=== PATIENT | female | born 1965 | race African-American/Black ===

== ENCOUNTER 2021-12-19 08:11 | Emergency (ER) | payer OTHER ==
[2021-12-19 12:24] LABS: SARS-CoV-2 PCR by NAA DETECTED (NotDetected)
== END 2021-12-19 09:24 | disposition home or self-care (01) ==
LOC: ERS 08:11
DX: U07.1 COVID-19 (principal); F17.210 Nicotine dependence, cigarettes, uncomplicated
CPT/HCPCS: 99283; U0003; U0005

== ENCOUNTER 2021-12-27 10:21 | Outpatient (CLI) | payer BC | END 2021-12-27 10:22 | disposition home or self-care (01) | LOC: BICRAD 10:21 | PROVIDERS: ATTEND Internal Medicine | DX: M17.12 Unilateral primary osteoarthritis, left knee (principal) ==

== ENCOUNTER 2022-01-10 09:45 | Outpatient (CLI) | payer BC | END 2022-01-10 09:46 | disposition home or self-care (01) | LOC: BICCT 09:45 | PROVIDERS: ATTEND Internal Medicine | DX: Z12.2 Encounter for screening for malignant neoplasm of respiratory organs (principal); F17.210 Nicotine dependence, cigarettes, uncomplicated; R91.8 Other nonspecific abnormal finding of lung field | CPT/HCPCS: 71271 ==

== ENCOUNTER 2022-01-10 10:00 | Outpatient (CLI) | payer BC | END 2022-01-10 10:01 | disposition home or self-care (01) | LOC: BICMAMMO 10:00 | PROVIDERS: ATTEND Internal Medicine | DX: Z12.31 Encounter for screening mammogram for malignant neoplasm of breast (principal) | CPT/HCPCS: 77063; 77067 ==

== ENCOUNTER 2022-01-16 14:31 | Outpatient (CLI) | payer BC ==
[~2022-01-16 14:31] MED LIST: Iopamidol-370 76% 500 ML 1 ML ONE
== END 2022-01-16 14:32 | disposition home or self-care (01) ==
LOC: BICCT 14:31
PROVIDERS: ATTEND Internal Medicine
DX: R19.00 Intra-abdominal and pelvic swelling, mass and lump, unspecified site (principal); K43.9 Ventral hernia without obstruction or gangrene; Z90.710 Acquired absence of both cervix and uterus
CPT/HCPCS: 74177; Q9967

== ENCOUNTER 2022-04-22 13:10 | Emergency (ER) | payer BC ==
[2022-04-22] MEDS ORDERED: Ketorolac Tromethamine 30 MG/ML VIAL ONE (15:22)
== END 2022-04-22 15:45 | disposition home or self-care (01) ==
LOC: ERS 13:10
DX: M25.511 Pain in right shoulder (principal); F17.210 Nicotine dependence, cigarettes, uncomplicated; X50.0XXA Overexertion from strenuous movement or load, initial encounter
CPT/HCPCS: 96372; J1885

== ENCOUNTER 2022-04-24 10:04 | Emergency (ER) | payer BC | END 2022-04-24 11:00 | disposition home or self-care (01) | LOC: ERS 10:04 | DX: M25.511 Pain in right shoulder (principal); F17.210 Nicotine dependence, cigarettes, uncomplicated | CPT/HCPCS: 99282 ==

== ENCOUNTER 2023-12-03 08:54 | Inpatient (IN) | payer BC ==
[2023-12-03] MEDS ORDERED: diphenhydrAMINE 50 MG/ML VIAL ONE (09:36)
[2023-12-03] MEDS ORDERED: Acetaminophen 500 MG TAB ONE (09:36)
[2023-12-03] MEDS ORDERED: Metoclopramide HCl 10 MG (2 mL) VIAL ONE (09:36)
[2023-12-03 11:34] LABS: SARS-CoV-2 NAA Rapid Test Not Detected (NotDetected)
[2023-12-03 13:53] LABS: #Monocytes 0.4 thou/uL (0.11-0.59); #Neutrophils 7.6 thou/uL (1.40-6.50); %Basophils 0.3 % (0.0-1.0); %Eosinophils 0.4 % (0.0-10.0); %Lymphocytes 13.2 % (21.0-51.0); %Monocytes 4.6 % (0.0-10.0); %Neutrophils 81.2 % (42.0-75.0); Hemoglobin 13.3 g/dL (12.0-16.0); Mean Corpuscular HGB CONC 30.9 g/dL (32.0-36.0); Mean Corpuscular Hemoglobin 29.5 pg (27.0-31.0); Mean Corpuscular Volume 95.3 fl (78.0-98.0); Mean Platelet Volume 9.4 fL (7.4-10.4); Platelet Count 292 10x3/uL (130-400); RBC Distribution Width 14.7 % (11.5-14.5); Red Blood Cell (RBC) Count 4.51 mill/uL (4.20-5.40); White Blood Cell (WBC) Count 9.3 10x3/uL (4.8-10.8)
[2023-12-03 14:08] LABS: ALT (SGPT) 27 U/L (8-55); AST (SGOT) 18 U/L (5-34); Albumin 4.1 g/dL (3.5-5.0); Alkaline Phosphatase 103 U/L (40-110); Anion Gap 14 mmol/L (10-20); BUN (Urea Nitrogen) 10 mg/dL (9.8-20.1); Bilirubin, Total 0.2 mg/dL (0.2-1.2); Calc. Creatinine Clearance 0 mL/min (70-130); Calcium 9.1 mg/dL (7.8-10.44); Carbon Dioxide 26 mmol/L (22-29); Chloride 103 mmol/L (98-107); Estimated GFR 100; Globulin 3.6 g/dL (2.4-3.5); Glucose 83 mg/dL (70-105); Potassium 3.9 mmol/L (3.5-5.1); Protein, Total 7.7 g/dL (6.0-8.3); Sodium 139 mmol/L (136-145)
[2023-12-03 14:12] LABS: Troponin I 0.021 ng/mL (< 0.028)
[2023-12-03] MEDS ORDERED: Sodium Chloride 0.9% 100 ML ONE (15:59)
[2023-12-03] MEDS ORDERED: cefTRIAXone (ROCEPHIN) 2 GM VIAL ONE (15:59)
[2023-12-03] MEDS ORDERED: Furosemide 40 MG (4 mL) VIAL ONE (15:59)
[2023-12-03] MEDS ORDERED: Ketorolac Tromethamine 30 MG (1 mL) VIAL ONE (15:59)
[2023-12-03] MEDS ORDERED: Azithromycin 500 MG VIAL ONE (15:59)
[2023-12-03 19:34] VITALS: BMI 54.8
[2023-12-03] MEDS ORDERED: Losartan 25 MG TAB PO SCH (20:15)
[2023-12-03] MEDS: Acetaminophen 325 MG TAB PO PRN (20:36)
[2023-12-03] MEDS ORDERED: Labetalol HCl 100 MG/20 ML VIAL SLOW IVP SCH (22:45)
[2023-12-03] MEDS: Ketorolac Tromethamine 30 MG (1 mL) VIAL IVP PRN (22:46)
[2023-12-04 04:42] LABS: #Eosinphils 0.1 thou/uL (0.0-0.7); #Monocytes 0.5 thou/uL (0.11-0.59); #Neutrophils 6.3 thou/uL (1.40-6.50); %Basophils 0.5 % (0.0-1.0); %Eosinophils 0.7 % (0.0-10.0); %Lymphocytes 17.4 % (21.0-51.0); %Monocytes 5.7 % (0.0-10.0); %Neutrophils 75.5 % (42.0-75.0); Hematocrit 42.6 % (36.0-47.0); Hemoglobin 13.2 g/dL (12.0-16.0); Mean Corpuscular Hemoglobin 29.2 pg (27.0-31.0); Mean Corpuscular Volume 94.2 fl (78.0-98.0); Mean Platelet Volume 11.1 fL (7.4-10.4); Platelet Count 228 10x3/uL (130-400); RBC Distribution Width 14.7 % (11.5-14.5); Red Blood Cell (RBC) Count 4.52 mill/uL (4.20-5.40); White Blood Cell (WBC) Count 8.4 10x3/uL (4.8-10.8)
[2023-12-04 05:06] LABS: Anion Gap 13 mmol/L (10-20); BUN (Urea Nitrogen) 9 mg/dL (9.8-20.1); Calc. Creatinine Clearance 230 mL/min (70-130); Calcium 9.1 mg/dL (7.8-10.44); Carbon Dioxide 28 mmol/L (22-29); Chloride 100 mmol/L (98-107); Estimated GFR 104; Glucose 94 mg/dL (70-105); Potassium 3.4 mmol/L (3.5-5.1); Sodium 138 mmol/L (136-145)
[2023-12-04] MEDS: Ketorolac Tromethamine 30 MG (1 mL) VIAL IVP PRN (06:29)
[2023-12-04] MEDS ORDERED: Losartan 25 MG TAB PO SCH (09:00)
[2023-12-04] MEDS ORDERED: Enoxaparin 40 MG (0.4 mL) SYRINGE SC SCH (09:00)
[2023-12-04] MEDS: Losartan 25 MG TAB PO SCH (09:20)
[2023-12-04] MEDS: Acetaminophen 325 MG TAB PO PRN ×2 (13:49→21:03)
[2023-12-04] MEDS: hydrALAZINE 10 MG TAB PO PRN (13:50)
[2023-12-04] MEDS: Azithromycin 500 MG in Sodium Chloride 0.9% 250 ML 250 ML IVPB SCH (17:53)
[2023-12-04] MEDS: cefTRIAXone\\ROCEPHIN 1 GM in Sodium Chloride 0.9% 100 ML IVPB SCH (17:53)
[2023-12-04] MEDS: Metoprolol Tartrate 25 MG TAB PO SCH (21:04)
[2023-12-04] MEDS: Enoxaparin 30 MG (0.3 mL) SYRINGE SC SCH (21:05)
[2023-12-05] MEDS: hydrALAZINE 10 MG TAB PO PRN ×2 (00:05→16:34)
[2023-12-05] MEDS: Metoprolol Tartrate 25 MG TAB PO SCH (09:17)
[2023-12-05] MEDS: Enoxaparin 30 MG (0.3 mL) SYRINGE SC SCH (09:17)
[2023-12-05] MEDS: Losartan 25 MG TAB PO SCH (09:17)
[2023-12-05 16:05] VITALS: BP 182/83; TEMP 98.2
[2023-12-05] MEDS: cefTRIAXone\\ROCEPHIN 1 GM in Sodium Chloride 0.9% 100 ML IVPB SCH (16:34)
[2023-12-05] MEDS: Ketorolac Tromethamine 30 MG (1 mL) VIAL IVP PRN (16:36)
[2023-12-05] MEDS ORDERED: Carvedilol 25 MG TAB PO SCH (17:00)
[2023-12-05] MEDS: Azithromycin 500 MG in Sodium Chloride 0.9% 250 ML 250 ML IVPB SCH (17:27)
== END 2023-12-05 19:16 | disposition home or self-care (01) | DRG 304 ==
LOC: ERS 08:54 → ERHOLD 16:04 → 2NO 19:07 → OBSVTOIN 12-05 15:28
PROVIDERS: ADMIT Internal Medicine; ATTEND Hospitalist
DX: I16.1 Hypertensive emergency (principal); J18.9 Pneumonia, unspecified organism; Z68.43 Body mass index [BMI] 50.0-59.9, adult; I50.30 Unspecified diastolic (congestive) heart failure; Z79.899 Other long term (current) drug therapy; I11.0 Hypertensive heart disease with heart failure; Z11.52 Encounter for screening for COVID-19; Z90.710 Acquired absence of both cervix and uterus; Z90.49 Acquired absence of other specified parts of digestive tract; F17.210 Nicotine dependence, cigarettes, uncomplicated; E66.01 Morbid (severe) obesity due to excess calories
CPT/HCPCS: 36415; 70450; 71045; 80048; 80053; 83880; 84484; 85025; 85379; 93005; 93306; J0456; J0696; J1200; J1650; J1885; J1940; J2765; J3490; J7050

== ENCOUNTER 2023-12-18 15:14 | Outpatient (CLI) | payer BC | END 2023-12-18 15:15 | disposition home or self-care (01) | LOC: BICRAD 15:14 | PROVIDERS: ATTEND Internal Medicine | DX: M25.561 Pain in right knee (principal); M25.562 Pain in left knee; M54.50 Low back pain, unspecified; I51.7 Cardiomegaly; M47.816 Spondylosis without myelopathy or radiculopathy, lumbar region; M17.0 Bilateral primary osteoarthritis of knee; Z87.01 Personal history of pneumonia (recurrent) | CPT/HCPCS: 71046; 72100 ==

== ENCOUNTER 2023-12-19 10:39 | Outpatient (CLI) | payer BC ==
[2023-12-19] MEDS ORDERED: Iopamidol 370 76% 100 ML VIAL ONE (12:33)
== END 2023-12-19 10:40 | disposition home or self-care (01) ==
LOC: ULT 10:39
PROVIDERS: ATTEND Internal Medicine
DX: R79.89 Other specified abnormal findings of blood chemistry (principal); M71.22 Synovial cyst of popliteal space [Baker], left knee; R91.8 Other nonspecific abnormal finding of lung field
CPT/HCPCS: 71275; 93970; Q9967

== ENCOUNTER 2024-08-13 10:23 | Inpatient (IN) | payer BC, SELFPAY ==
[2024-08-13 11:06] LABS: #Basophils Less than 0.03 10x3/uL (0.0-0.2); %Basophils 0.3 % (0.0-1.0); %Eosinophils 1.2 % (0.0-10.0); %Lymphocytes 14.6 % (21.0-51.0); %Monocytes 6.4 % (0.0-10.0); %Neutrophils 77.1 % (42.0-75.0); Hematocrit 43.3 % (36.0-47.0); Hemoglobin 13.6 g/dL (12.0-16.0); Mean Corpuscular HGB CONC 31.4 g/dL (32.0-36.0); Mean Corpuscular Hemoglobin 29.2 pg (27.0-31.0); Mean Corpuscular Volume 92.9 fL (78.0-98.0); Mean Platelet Volume 9.2 fL (7.4-10.4); Platelet Count 333 10x3/uL (130-400); RBC Distribution Width 13.3 % (11.5-14.5); Red Blood Cell (RBC) Count 4.66 mill/uL (4.20-5.40)
[2024-08-13] MEDS ORDERED: Iopamidol-370 76% 500 ML MDV (1 ML CHARGE) ONE (11:09)
[2024-08-13 11:21] LABS: PTT 33.3 sec (22.9-36.1); Prothrombin Time 13.6 sec (12.0-14.7)
[2024-08-13 11:23] LABS: D-Dimer Test 0.61 mcg/mL (0.27-0.43)
[2024-08-13 11:25] LABS: SARS-CoV-2 E Target Negative; SARS-CoV-2 N2 Target Negative; SARS-CoV-2 NAA Rapid Test Not Detected (NotDetected); SARS-CoV-2 RdRP gene Negative
[2024-08-13 11:35] LABS: Troponin I Less than 0.010 ng/mL (< 0.028)
[2024-08-13 11:44] LABS: Actual Bicarbonate (HCO3v) 27.4 mEq/L (22-28); Base Excess -0.3 mEq/L (-2.0 to +3.0); Calcium, Ionized (venous) 1.13 mmol/L (1.16-1.32); Chloride (VBG) 101 mmol/L (98-106); Hematocrit-VBG 44 % (36.0-47.0); Hemoglobin (Hb) 14.9 g/dL (11.7-16.0); Potassium (VBG) 5.22 mmol/L (3.70-5.30); Sodium 139 mmol/L (133-146)
[2024-08-13 12:20] LABS: Bacteria/HPF None Seen HPF (None Seen); Bilirubin Negative (Negative); Blood, Urine Negative (Negative); CAUTI Indications for Culture Alt mental st,lethar; Clarity Clear (Clear); Glucose, Urine (Dipstick) Normal (Negative); Ketone, Urine Negative (Negative); Leukocyte Negative Leu/uL (Negative); Nitrite Negative (Negative); Protein, Urine (Dipstick) 10 mg/dL (Neg-Trace); RBC/HPF 0-3 HPF (0-3); Specific Gravity, Urine 1.027 (1.002-1.036); Squamous Epithelial 0-3 HPF (0-3); Urobilinogen Normal mg/dL (Less than 2); WBC/HPF 0-3 HPF (0-3)
[2024-08-13 12:26] LABS: Amphetamine Not Detected (NotDetected); Barbiturates Screen Not Detected (NotDetected); Benzodiazepine Screen Not Detected (NotDetected); Cocaine Metabolite Screen Not Detected (NotDetected); Methadone Not Detected (NotDetected); Methamphetamine Not Detected (NotDetected); Opiate Screen Detected (NotDetected); Oxycodone Screen Not Detected (NotDetected); Phencyclidine (PCP) Not Detected (NotDetected); THC/Cannabinoid Screen Detected (NotDetected); Tricyclic Screen Not Detected (NotDetected)
[2024-08-13 12:38] LABS: Urine Culture Reflex No No
[2024-08-13 13:02] LABS: Lipase 22 U/L (8-78); Magnesium 1.8 mg/dL (1.6-2.6)
[2024-08-13 13:03] LABS: Acetaminophen Less than 10 mcg/mL (Less than 10); Alcohol Less than 10.0 mg/dL (Less than 10); Salicylate Less than 8.0 mg/dL (Less than 8.0)
[2024-08-13 13:12] LABS: ALT (SGPT) 32 U/L (8-55); AST (SGOT) 33 U/L (5-34); Albumin 3.6 g/dL (3.5-5.0); Alkaline Phosphatase 105 U/L (40-110); Anion Gap 17 mmol/L (10-20); BUN (Urea Nitrogen) 12 mg/dL (9.8-20.1); Bilirubin, Total 0.4 mg/dL (0.2-1.2); CK (CPK) 89 U/L (29-168); Calc. Creatinine Clearance 0 mL/min (70-130); Calcium 9.3 mg/dL (7.8-10.44); Carbon Dioxide 17 mmol/L (22-29); Chloride 106 mmol/L (98-107); Estimated GFR 96; Globulin 4.1 g/dL (2.4-3.5); Glucose 59 mg/dL (70-105); Potassium 4.8 mmol/L (3.5-5.1); Protein, Total 7.7 g/dL (6.0-8.3); Sodium 135 mmol/L (136-145)
[2024-08-13] MEDS ORDERED: Sodium Chloride 0.9% 100 ML ONE (15:01)
[2024-08-13] MEDS ORDERED: Furosemide 40 MG (4 mL) VIAL ONE (15:01)
[2024-08-13] MEDS ORDERED: Cefepime 2 GM VIAL ONE (15:01)
[2024-08-13 16:59] VITALS: BMI 49.8
[2024-08-13] MEDS: Vancomycin (BATCH) 2.5 GM in Premix 1 BAG IVPB SCH (17:08)
[2024-08-13] MEDS ORDERED: Vancomycin 1 GM in Premix 1 BAG IVPB SCH (21:00)
[2024-08-13] MEDS ORDERED: Bisacodyl 5 MG TAB PO PRN (22:35)
[2024-08-13] MEDS ORDERED: Ondansetron PF 4 MG/2 ML Vial IVP PRN (22:35)
[2024-08-13] MEDS ORDERED: Acetaminophen 325 MG TAB PO PRN (22:35)
[2024-08-13] MEDS ORDERED: Acetaminophen 650 MG Suppository PR PRN (22:35)
[2024-08-14] MEDS: Nicotine 21 MG PATCH TD SCH (00:12)
[2024-08-14] MEDS: Cefepime 2 GM in Sodium Chloride 0.9% 100 ML IVPB SCH (00:16)
[2024-08-14] MEDS: Vancomycin 1 GM in Premix 1 BAG IVPB SCH (00:18)
[2024-08-14] MEDS: Furosemide 40 MG (4 mL) VIAL SLOW IVP SCH (05:43)
[2024-08-14 06:11] LABS: Anion Gap 14 mmol/L (10-20); BUN (Urea Nitrogen) 11 mg/dL (9.8-20.1); Calc. Creatinine Clearance 191 mL/min (70-130); Calcium 9.4 mg/dL (7.8-10.44); Carbon Dioxide 24 mmol/L (22-29); Chloride 106 mmol/L (98-107); Estimated GFR 100; Glucose 75 mg/dL (70-105); Potassium 4.2 mmol/L (3.5-5.1); Sodium 140 mmol/L (136-145)
[2024-08-14] MEDS ORDERED: Lorazepam 2 MG/ML VIAL SLOW IVP PRN (07:59)
[2024-08-14] MEDS: Enoxaparin 40 MG (0.4 mL) SYRINGE SC SCH (10:28)
[2024-08-14 10:53] LABS: #Basophils 0.03 10x3/uL (0.0-0.2); %Basophils 0.5 % (0.0-1.0); %Eosinophils 2.7 % (0.0-10.0); %Lymphocytes 20.1 % (21.0-51.0); %Monocytes 5.5 % (0.0-10.0); %Neutrophils 70.8 % (42.0-75.0); Hematocrit 45.4 % (36.0-47.0); Mean Corpuscular HGB CONC 30.8 g/dL (32.0-36.0); Mean Corpuscular Hemoglobin 29.4 pg (27.0-31.0); Mean Corpuscular Volume 95.2 fL (78.0-98.0); Mean Platelet Volume 9.5 fL (7.4-10.4); Platelet Count 298 10x3/uL (130-400); RBC Distribution Width 13.7 % (11.5-14.5); Red Blood Cell (RBC) Count 4.77 mill/uL (4.20-5.40)
[2024-08-14 11:06] LABS: Vancomycin, Random 15.9 ug/mL (See Comment)
[2024-08-14 11:16] LABS: Anisocytosis MARKED = >30 cells HPF (0-5); Macrocytosis MODERATE=16-30 cells HPF (0-5); Platelet Adequacy Comment Platelets Normal; Polychromasia SLIGHT = 2-3 cells HPF (0-2)
[2024-08-15] MEDS: Haloperidol Lactate 5 MG/ML VIAL IM SCH (07:41)
[2024-08-15 10:31] LABS: #Basophils 0.04 10x3/uL (0.0-0.2); %Basophils 0.5 % (0.0-1.0); %Eosinophils 1.9 % (0.0-10.0); %Lymphocytes 22.8 % (21.0-51.0); %Monocytes 9.2 % (0.0-10.0); %Neutrophils 65.3 % (42.0-75.0); Hematocrit 45.8 % (36.0-47.0); Hemoglobin 14.5 g/dL (12.0-16.0); Mean Corpuscular HGB CONC 31.7 g/dL (32.0-36.0); Mean Corpuscular Hemoglobin 29.5 pg (27.0-31.0); Mean Corpuscular Volume 93.1 fL (78.0-98.0); Mean Platelet Volume 9.1 fL (7.4-10.4); Platelet Count 351 10x3/uL (130-400); RBC Distribution Width 13.4 % (11.5-14.5); Red Blood Cell (RBC) Count 4.92 mill/uL (4.20-5.40)
[2024-08-15 10:43] LABS: Anion Gap 14 mmol/L (10-20); BUN (Urea Nitrogen) 16 mg/dL (9.8-20.1); Calc. Creatinine Clearance 166 mL/min (70-130); Carbon Dioxide 32 mmol/L (22-29); Chloride 98 mmol/L (98-107); Estimated GFR 90; Glucose 83 mg/dL (70-105); Potassium 3.3 mmol/L (3.5-5.1); Sodium 141 mmol/L (136-145)
[2024-08-15] MEDS: Potassium Chloride 20 MEQ TAB PO SCH (11:51)
[2024-08-16] MEDS: Furosemide 20 MG TAB PO SCH ×2 (06:23→15:25)
[2024-08-16] MEDS: Cefdinir 300 MG CAP PO SCH (08:11)
[2024-08-16] MEDS: Doxycycline 100 MG CAP PO SCH (08:11)
[2024-08-16 11:00] LABS: #Basophils 0.04 10x3/uL (0.0-0.2); %Basophils 0.5 % (0.0-1.0); %Eosinophils 1.6 % (0.0-10.0); %Lymphocytes 20.6 % (21.0-51.0); %Monocytes 6.8 % (0.0-10.0); %Neutrophils 70.2 % (42.0-75.0); Hematocrit 45.1 % (36.0-47.0); Hemoglobin 14.4 g/dL (12.0-16.0); Mean Corpuscular HGB CONC 31.9 g/dL (32.0-36.0); Mean Corpuscular Hemoglobin 28.9 pg (27.0-31.0); Mean Corpuscular Volume 90.6 fL (78.0-98.0); Mean Platelet Volume 9.5 fL (7.4-10.4); Platelet Count 321 10x3/uL (130-400); RBC Distribution Width 13.6 % (11.5-14.5); Red Blood Cell (RBC) Count 4.98 mill/uL (4.20-5.40)
[2024-08-16 11:07] LABS: Anion Gap 13 mmol/L (10-20); BUN (Urea Nitrogen) 15 mg/dL (9.8-20.1); Calc. Creatinine Clearance 181 mL/min (70-130); Calcium 9.9 mg/dL (7.8-10.44); Carbon Dioxide 32 mmol/L (22-29); Chloride 101 mmol/L (98-107); Estimated GFR 100; Glucose 115 mg/dL (70-105); Potassium 3.3 mmol/L (3.5-5.1); Sodium 143 mmol/L (136-145)
[2024-08-16] MEDS: Furosemide 40 MG TAB PO SCH (15:29)
[2024-08-17 05:46] LABS: #Basophils 0.04 10x3/uL (0.0-0.2); %Basophils 0.4 % (0.0-1.0); %Eosinophils 1.3 % (0.0-10.0); %Lymphocytes 18.1 % (21.0-51.0); %Neutrophils 71.9 % (42.0-75.0); Hematocrit 46.9 % (36.0-47.0); Hemoglobin 14.9 g/dL (12.0-16.0); Mean Corpuscular HGB CONC 31.8 g/dL (32.0-36.0); Mean Corpuscular Hemoglobin 28.4 pg (27.0-31.0); Mean Corpuscular Volume 89.5 fL (78.0-98.0); Mean Platelet Volume 10.5 fL (7.4-10.4); Platelet Count 289 10x3/uL (130-400); RBC Distribution Width 13.5 % (11.5-14.5); Red Blood Cell (RBC) Count 5.24 mill/uL (4.20-5.40)
[2024-08-17 06:00] LABS: Anion Gap 14 mmol/L (10-20); BUN (Urea Nitrogen) 15 mg/dL (9.8-20.1); Calc. Creatinine Clearance 166 mL/min (70-130); Calcium 10.1 mg/dL (7.8-10.44); Carbon Dioxide 32 mmol/L (22-29); Chloride 98 mmol/L (98-107); Estimated GFR 92; Glucose 92 mg/dL (70-105); Potassium 3.2 mmol/L (3.5-5.1); Sodium 141 mmol/L (136-145)
[2024-08-17] MEDS: Furosemide 40 MG TAB PO SCH (08:44)
[2024-08-17 13:44] VITALS: TEMP 98.1
[2024-08-17 13:47] VITALS: BP 115/77
== END 2024-08-17 14:26 | disposition left against medical advice (07) | DRG 193 ==
LOC: ERS 10:23 → 2SE 16:47 → OBSVTOIN 08-14 12:08
PROVIDERS: ADMIT Internal Medicine; ATTEND Internal Medicine
DX: J18.9 Pneumonia, unspecified organism (principal); G93.41 Metabolic encephalopathy; I50.33 Acute on chronic diastolic (congestive) heart failure; F17.210 Nicotine dependence, cigarettes, uncomplicated; I11.0 Hypertensive heart disease with heart failure; E87.6 Hypokalemia; E66.9 Obesity, unspecified; Z79.899 Other long term (current) drug therapy; Z90.710 Acquired absence of both cervix and uterus; Z90.49 Acquired absence of other specified parts of digestive tract; Z82.49 Family history of ischemic heart disease and other diseases of the circulatory system
CPT/HCPCS: 36415; 36416; 51701; 70450; 71045; 71275; 80048; 80053; 80202; 80306; 80307; 81001; 82550; 82805; 83605; 83690; 83735; 83880; 84484; 85025; 85379; 85610; 85730; 86850; 86900; 86901; 87040; 87081; 87086; 93005; 93798; 94760; 96372; 96374; 96375; 96376; 97139; G0378; J0692; J1650; J1940; J3370; J3370-JW; Q9967; U0002

== ENCOUNTER 2025-07-03 05:33 | Emergency (ER) | payer OTHER ==
[2025-07-03] MEDS ORDERED: Ketorolac Tromethamine 30 MG (1 mL) VIAL ONE (05:55)
== END 2025-07-03 06:25 | disposition home or self-care (01) ==
LOC: ERS 05:33
DX: S43.401A Unspecified sprain of right shoulder joint, initial encounter (principal); I11.0 Hypertensive heart disease with heart failure; I50.9 Heart failure, unspecified; F17.210 Nicotine dependence, cigarettes, uncomplicated; X58.XXXA Exposure to other specified factors, initial encounter
CPT/HCPCS: 96372; 99283; J1885